=== PATIENT | female | born 1970 | race Caucasian/White ===

== ENCOUNTER → 2021-07-18 15:19 | Outpatient (CLI) | payer OTHER, SELFPAY ==
--- NOTE | ~2021-07-18 | MR_ITS ---
EXAMINATION: MR ankle RT wo con DATE: 07/18/2021 16:28 INDICATION: Right ankle pain. Other injury of muscle and tendon of peroneal. TECHNIQUE: Magnetic resonance imaging (MRI) of the right ankle was performed without intravenous cont rast. Sequences included sagittal PD-weighted FS FSE, sagittal PD-weighted FSE, coronal PD-weighted F S FSE, coronal PD-weighted FSE, axial PD-weighted FS FSE, and axial PD-weighted FSE. COMPARISON: None. FINDINGS: Medial ankle ligaments: There are changes of prior sprain of the deltoid ligament characterized by thickening and increased s ignal intensity of the superficial component. The deep component of the deltoid ligament is normal. Lateral ankle ligaments: There are changes of prior sprains of anterior talofibular ligament and calcaneofibular ligament kemi acterized by thickening and increased signal intensity. Posterior talofibular ligament is normal. The re are changes of prior sprain of anterior tibiofibular ligament characterized by thickening and incr eased signal intensity. Posterior tibiofibular ligament is normal. Tendons: There is a longitudinal split tear of peroneus brevis tendon. Peroneus longus tendon is normal, but s ensitivity is decreased between the peroneal tubercle and cuboid tunnel due to magic angle artifact. The anterior and medial ankle tendons are normal. Achilles tendon is normal. Plantar fascia: There is thickening and increased signal of central band of the plantar fascia, consistent with fasci itis. There is an enthesophyte at the calcaneal attachment. Bones/other: Bone alignment is normal. No fracture. Talar dome is normal. 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 There is moderate fatty atrophy of abductor digit quinti muscle. Fluid: There are small ankle and subtalar joint effusions. IMPRESSION: 1. Longitudinal split tear of peroneus brevis tendon. 2. Changes of medial and lateral ankle sprains. 3. Plantar fasciitis. Reviewed, dictated and finalized at location A. [employer]
== END ==
DX: S86.391A Other injury of muscle(s) and tendon(s) of peroneal muscle group at lower leg level, right leg, initial encounter (principal); S96.911A Strain of unspecified muscle and tendon at ankle and foot level, right foot, initial encounter; M72.2 Plantar fascial fibromatosis
CPT/HCPCS: 73721

== ENCOUNTER → 2022-12-11 13:42 | Outpatient (CLI) | payer OTHER, SELFPAY ==
--- NOTE | ~2022-12-11 | MR_ITS ---
EXAMINATION: MR foot RT wo/w con, MR ankle RT wo/w con DATE: 12/11/2022 15:15 INDICATION: Strain of muscles and tendons of the right lower leg TECHNIQUE: 1. Magnetic resonance imaging (MRI) of the right ankle and hindfoot was performed without intravenous contrast. Sequences included axial, sagittal and coronal PD-weighted FSE, PD-weighted FS FSE and pos tcontrast T1-weighted FS FSE. 2. MRI of the right fore/mid foot was performed without intravenous contrast. Sequences included sagi ttal T1-weighted FSE, sagittal fluid sensitive FSE STIR, coronal PD-weighted FS FSE, coronal T1-weigh lenka FSE, axial PD-weighted FS FSE, and axial PD-weighted FSE. COMPARISON: Right ankle MRI dated 07/18/2021 FINDINGS: Medial ankle ligaments: Deep to the ligament as well as the spring ligament are normal. Again seen is thickening of the right superficial deltoid ligament consistent with mild scarring related to chronic sprain. Lateral ankle ligaments: The anterior and posterior inferior tibiofibular ligaments are normal. A couple small heterotopic oss icles along the thickened anterior talofibular ligament consistent with sequela of chronic sprain. Ad ditional thickening of the calcaneofibular ligament also consistent with scarring related to chronic sprain. The posterior talofibular ligament is normal. Tendons: Achilles tendon is normal. Mild enhancing peroneal tenosynovitis. Moderate tendinopathy and longitudi nal split tearing of the peroneus brevis tendon T12. Mild tendinopathy without tear of the peroneus l ongus tendon. The tibialis anterior and extensor hallucis longus and extensor digitorum longus tendon s are normal. The tibialis posterior, flexor digitorum longus and flexor hallucis longus tendons are normal. Plantar fascia: Small plantar calcaneal spur with mild thickening of the proximal plantar aponeurosis consistent with mild chronic enthesopathy. No surrounding soft tissue edema or enhancement to suggest an acute plant ar fasciitis. Mid and forefoot ligaments: The Lisfranc ligament complex, intercuneiform ligaments as well as the collateral ligament complex at the metatarsophalangeal and interphalangeal joints are normal. Bones/other: Bone alignment is normal. Normal marrow signal with no fracture or pathologic marrow replacing proces s. Mild subarticular cystic change at the anterior process of the calcaneus with corresponding mild o steoarthritis at the calcaneocuboid articulation. Additional mild osteoarthritis at the first metatar sophalangeal and a few tarsal metatarsal joints. Remaining joint spaces are relatively preserved. No erosions. Intrinsic musculature of the foot is unremarkable. No abnormally enhancing soft tissue lesi ons suspicious for neoplasm. Fluid: Physiologic amount fluid in the joint spaces no tenosynovitis, bursitis or other abnormal fluid colle ctions. IMPRESSION: 1. Mild peroneal tenosynovitis with mild peroneus longus tendinopathy without tear and moderate tendi nopathy and longitudinal split tearing of the peroneus brevis tendon. 2. Mild scarring consistent with chronic medial and lateral ankle sprains. 3. Mild chronic plantar enthesopathy. Reviewed, dictated and finalized at location A. IMPRESSION: 1. Mild peroneal tenosynovitis with mild peroneus longus tendinopathy without t ear and moderate tendinopathy and longitudinal split tearing of the peroneus br travis tendon. 2. Mild scarring consistent with chronic medial and lateral ankle sprains. 3. Mild chronic plantar enthesopathy. IMPRESSION: 1. Mild peroneal tenosynovitis with mild peroneus longus tendinopathy without t ear and moderate tendinopathy and longitudinal split tearing of the peroneus br ev
== END ==
PROVIDERS: PCP Registered Nurse
DX: S86.311A Strain of muscle(s) and tendon(s) of peroneal muscle group at lower leg level, right leg, initial encounter (principal); M76.71 Peroneal tendinitis, right leg
CPT/HCPCS: 73720; 73723; A9577

== ENCOUNTER 2024-03-16 12:30 | Outpatient (CLI) | payer OTHER, SELFPAY ==
--- NOTE | ~2024-03-16 | MR_ITS ---
EXAMINATION: MR ankle RT wo/w con DATE: 03/16/2024 14:07 INDICATION: Right ankle sprain TECHNIQUE: Magnetic resonance imaging (MRI) of the right ankle was performed without and with 18 mL M ultihance intravenous contrast. Sequences included axial, sagittal and coronal PD-weighted FSE, axial T2-weighted FS FSE, sagittal and coronal PD-weighted FS FSE, axial T1-weighted FS FSE and postcontra st axial, sagittal and coronal T1-weighted FS FSE. COMPARISON: None. FINDINGS: Medial ankle ligaments: Deep deltoid ligament as well as the spring ligament are normal. There is mild thickening of the ante rior superficial deltoid ligament without surrounding edema consistent with mild scarring related to chronic sprain. Lateral ankle ligaments: The anterior and posterior inferior tibiofibular ligaments are normal. The posterior talofibular liga ment is normal. No interval change in thickening and minimal increased signal of the calcaneofibular ligament without surrounding edema consistent with sequela of chronic partial tear. There are new pos toperative changes at the lateral malleolus with multiple foci of susceptibility artifact extending a cross the anteroinferior margin of the lateral malleolus and anteromedially to the lateral process of the talus suggesting prior anterior talofibular ligament reconstruction. There is an anchor tract at the lateral malleolus suggesting placement of an internal interval brace in conjunction with the lig ament repair. What appears to be the likely talar anchor appears positioned along the anterior inferi or margin of the lateral process of the talus extending medial into the sinus Tarsi. On the sagittal images there appears to have been interval progression of tearing of the previously intact portion of the talar side of the anterior talofibular ligament. Again seen is a small heterotopic ossicle along the fibular side of the ligament likely sequela of an earlier chronic partial tear. Tendons: Achilles tendon is normal. The peroneus longus tendon is normal. Again seen is a longitudinal split t ear of the peroneus brevis tendon centered at the tip of the lateral malleolus extending from the ret romalleolar groove to the trochlear eminence of the calcaneus. The associated tendinopathy and tenosy novitis appears improved. The tibialis anterior and extensor hallucis longus and extensor digitorum l ongus tendons are normal. The tibialis posterior, flexor digitorum longus and flexor hallucis longus tendons are normal. Plantar fascia: Small plantar calcaneal spur with mild thickening of the proximal plantar aponeurosis consistent with mild chronic enthesopathy. No surrounding soft tissue edema or enhancement to suggest acute plantar fasciitis. Bones/other: No fracture or pathologic marrow replacing process. End seen is mild subarticular cystlike change at the anterior process of the calcaneus associated with mild osteoarthritis at the calcaneocuboid artic ulation. Additional mild osteoarthritis at the naviculocuneiform and 50 tarsal metatarsal joints. Vis ual is portions of the Lisfranc ligament complex is normal. Visualized intrinsic musculature of the f oot is unremarkable. Fluid: Minimal effusion at the ankle and subtalar joints primarily at the posterior recess. IMPRESSION: 1. Postoperative change of interval anterior talofibular reconstruction likely with associated internal control analyst al bracing with recurrent tear along the talar side of the ligament and suggestion of displacement of the talar sided anchor of the presumed internal brace. Correlate with details of prior surgery. 2. Additional unchanged scarring consistent with chronic sprains of the calcaneofibular and superfici al deltoid ligaments. 3. Unchanged longitudinal split tear of the peroneus brevis tendon with improvement in mild associate d tendinopathy and tenosynovitis. 4. Unchanged mild chronic plantar enthesopathy. 4. Unchanged p
== END 2024-03-16 12:31 ==
LOC: MICIMG 12:33
DX: S93.491D Sprain of other ligament of right ankle, subsequent encounter (principal); M19.071 Primary osteoarthritis, right ankle and foot; M77.8 Other enthesopathies, not elsewhere classified; Z98.890 Other specified postprocedural states; X58.XXXD Exposure to other specified factors, subsequent encounter
CPT/HCPCS: 73723; A9577